=== PATIENT | female | born 1960 | race Two or more races ===

== ENCOUNTER 2017-09-05 15:44 | Outpatient (CLI) | payer OTHER | END 2017-09-05 16:09 | disposition home or self-care (01) | LOC: RAD 15:44 | DX: M25.562 Pain in left knee (principal) ==

== ENCOUNTER 2017-09-05 16:13 | Outpatient (CLI) | payer OTHER | END 2017-09-05 16:46 | disposition home or self-care (01) | LOC: SONOGRAMA 16:13 | DX: M25.562 Pain in left knee (principal) ==

== ENCOUNTER 2022-08-17 00:02 | Emergency (ER) | payer OTHER ==
[~2022-08-17] VITALS: Ht 154.9 cm; Wt 65.8 kg
== END 2022-08-17 07:34 | disposition home or self-care (01) ==
LOC: ER 00:02
DX: R51.9 Headache, unspecified (principal)

== ENCOUNTER 2023-01-07 20:35 | Emergency (ER) | payer OTHER ==
[~2023-01-07] VITALS: Ht 157.5 cm; Wt 54.4 kg
[2023-01-07] MEDS ORDERED: INDERAL XL80 MG PO (21:01)
[2023-01-07] MEDS ORDERED: TAPAZOLE5 MG PO (21:01)
[2023-01-07] MEDS ORDERED: LIPITOR40 M1 PO (21:02)
[2023-01-07] MEDS ORDERED: CHILDREN'S ASPI81 MG PO (21:02)
[2023-01-07] MEDS ORDERED: COZAAR25 MG PO (21:02)
== END 2023-01-08 00:56 | disposition home or self-care (01) ==
LOC: ER 20:35
DX: M25.561 Pain in right knee (principal)

== ENCOUNTER 2023-06-11 18:19 | Emergency (ER) | payer OTHER ==
[~2023-06-11] VITALS: Ht 154.9 cm; Wt 59.0 kg
[~2023-06-11 18:19] MED LIST: CHILDREN'S ASPI81 MG PO; COZAAR25 MG PO; INDERAL XL80 MG PO; LIPITOR40 M1 PO; TAPAZOLE5 MG PO
[2023-06-11 22:00] LABS: HEMATOCRIT 39.2 % (36.0-45.00); HEMOGLOBIN 12.6 g/dL (12.0-15.00); MEAN CELL VOLUME 94.8 fL (80.00-100.00); MEAN CORPUSCULAR HEMOGLOBIN 30.5 pg (27.00-32.0); MEAN CORPUSCULAR HGB CONC 32.1 g/dl (32.0-36.0); PLATELET COUNT 216 K/uL (150-450); RED BLOOD COUNT 4.13 M/uL (4.00-6.00); RED CELL DISTRIBUTION WIDTH 15.6 % (11.5-14.5)
[2023-06-11 22:22] LABS: CALCIUM 9.2 mg/dL (8.5-10.1); CREATININE SERUM 0.89 mg/dL (0.55-1.02); GFR 64.27; POTASSIUM 3.83 mEq/L (3.5-5.1)
[2023-06-12 04:52] LABS: ABG PH 7.409 (7.35-7.45)
[2023-06-12 04:53] LABS: ABG PO2 79.1 mmHg (80-100); ABG pCO2 38.5 mmHg (35-45); BASE EXCESS -0.6 mmol/l; BICARBONATE 23.8 mmol/l (23-25); SaO2 95.7 %; allen test SATISFACTORY; o2 21 %; puncture site RADIAL RIGHT
== END 2023-06-12 10:11 | disposition home or self-care (01) ==
LOC: ER 18:19
PROVIDERS: General Practice
DX: S22.41XA Multiple fractures of ribs, right side, initial encounter for closed fracture (principal); V03.90XA Pedestrian on foot injured in collision with car, pick-up truck or van, unspecified whether traffic or nontraffic accident, initial encounter; Y93.9 Activity, unspecified; Y92.9 Unspecified place or not applicable; Y99.9 Unspecified external cause status

== ENCOUNTER 2025-02-02 23:29 | Emergency (ER) | payer OTHER ==
[~2025-02-02] VITALS: Ht 154.9 cm; Wt 68.0 kg
[2025-02-03] MEDS ORDERED: KETOROLAC TROMETHAMINE 10 MG TABLET PO STA (01:11)
[2025-02-03] MEDS ORDERED: KETOROLAC TROMETHAMINE 10 MG TABLET PO ONE (01:18)
== END 2025-02-03 10:28 | disposition home or self-care (01) ==
LOC: ER 23:44
DX: S09.8XXA Other specified injuries of head, initial encounter (principal); V18.0XXA Pedal cycle driver injured in noncollision transport accident in nontraffic accident, initial encounter; Y93.55 Activity, bike riding; Y92.413 State road as the place of occurrence of the external cause; S89.82XA Other specified injuries of left lower leg, initial encounter; I10 Essential (primary) hypertension; E05.80 Other thyrotoxicosis without thyrotoxic crisis or storm